=== PATIENT | male | born 1940 | race Caucasian/White ===

== ENCOUNTER 2016-11-24 13:00 | Outpatient (RCR) | payer MEDICARE ==
--- NOTE | 2016-11-04 12:40 | PT/OT/ST INITIAL EVALUATION ---
Department of Health and Human Services Form Approved [place] [employer] OMB No. [id number] PLAN OF CARE/ASSESSMENT FOR OUTPATIENT REHABILITATION (Complete for Initial Claims Only) 1. PATIENT'S NAME Cooper Gonzalez 2. ACC # [id number] 3. NAAIS 4. PROVIDER NO. [id number] 5. TYPE: PT 6. PRIOR HOSPITALIZATION NA 7. PRIMARY DX Low back pain and right hip pain. 8. SECONDARY DX NA 9. ONSET DATE 2 years ago 10. REFERRAL DATE 10/27/2016 11. SOC. DATE 11/01/2016 12. TIME OF EVAL 14:12 to 15:08 12. REFERRING PHYSICIAN MARIA C Herrera with Dr. Cortes Gtz 13. CHARGES/UNITS Evaluation 96353 1 unit of therapeutic exercise, 67961 1 unit of manual therapy, 40517 14. G CODES NA 15. PRIOR LEVEL OF FUNCTION; PERTINENT HISTORY (Prior therapy results, reason for referral.) S: Prior to therapy the patient consented to today's evaluation and treatment. The patient is a 76-year-old male referred by Kirsten Rodriguez for Dr. Sachin Gtz to address a 2-year history of low back pain and right hip pain. Primary Complaint: The patient's primary complaint is difficulty standing up straight, especially after he has been sitting for longer periods of time. He does feel his posture has continued to progress into a more forward flexed positioning over the last 2 years. The pain is minimal to moderate and is aggravated by standing or lifting, with standing time to approximately 10 minutes. The pain is relieved by sitting, walking or wearing a back brace. He does report achiness in the right hip in addition to the low back stiffness and lack of mobility. 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 The patient had no limitations with this and continues to do this on a daily basis. Current level of function: As stated above, the patient's standing tolerance is limited to 10 minutes prior to him needing to take a rest break. Therapy History: The patient denies any therapy for this issue. Recently he has seen a chiropractor, but did not receive treatment, only evaluation. Per patient's report he was told that he would need a hip replacement from the chiropractor. 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 Past medical history: The patient broke his right lower extremity 30 to 40 years ago in which he shattered his tibia and fibula. He has been in remission of colon cancer for 5 years, history of hypertension and bilateral carpal tunnel syndrome. Current medications: The patient is on Lisinopril and atorvastatin. The patient does take aspirin as needed. Patient's Goal: The patient's goal for physical therapy is to be able to walk and stand up straight. 16. INITIAL ASSESSMENT/SAFETY PRECAUTIONS/MEDICAL COMPLICATIONS (Level of function at start of care. Be specific, use objective measures, list problems.) O: APPEARANCE, OBSERVATION AND GAIT: Observation of the patient's posture revealed increased time needed to assume full upright standing from a sitting position. He demonstrates increased hip and pelvic movement versus lumbar spine movement with lumbar flexion. He is able to complete extension, but is limited by 90% in the lumbar spine. He is unable to perform straight lateral side bending in the low back, but does demonstrate rotation movements with this range of motion. Further assessment reveals decreased lumbar lordosis and thoracic kyphosis. PALPATION: Tenderness to palpation and tightness around the bilateral SI joints and lumbar paraspinals. MOBILITY: The patient has hypomobility throughout L4 into the sacrum, as well as mid thoracic spine hypomobility. SPECIAL TESTS: Negative VICKY, FADER, and hip scour test bilaterally for increased pain. Assessment of patient's pelvic rotation reveals right lower extremity moving from short to long with the long sitting test. The patient has negative lumbar shearing test for any instability. RANGE OF MOTION/FLEXIBILITY: The patient has right hip flexion to 108 degrees, left 114 degrees. Right hamstring length tested in the 90/90 position on the right 138 degrees, left 146 degrees. STRENGTH: Bilateral hip flexion and knee extension strength 5/5, knee flexion strength 4/5 bilaterally. Left hip abduction 3+/5, right 4/5. Hip extension on the left 3-/5, right 2-/5. TODAY'S TREATMENT: Today's treatment consisted of educating the patient on the findings of the evaluation and recommended treatment plan. The physical therapist initiated lower extremity stretching including single knee to chest, hamstring stretching and lower trunk rotation to improve mobility. The patient was provided a copy of these exercises to be completed at home. The physical therapist also initiated joint mobilization to the lumbar spine to improve mobility and decrease pain. 17. INITIAL POC: (Specify procedures, modalities, short and termite inspector goals) A: The patient presents to physical therapy with an approximate 2-year history of progressively flexed posture in the low back and pain associated with this at times. The patient has significant hypomobility in the lowest levels of the lumbar spine, as well as significant hip weakness and hamstring tightness. PROGNOSIS: The patient does have a good outcome with regular therapy attendance and compliance with his home exercise program. OUTCOME ASSESSMENT: The patient scores a 7/50 on the modified Oswestry. INFORMED CONSENT: The diagnosis, prognosis, treatment plan, risks and expected outcomes were discussed with this patient and he is agreeable to today's established plan of care. JUSTIFICATION FOR LOW COMPLEXITY EVALUATION CODE: The patient's posture is progressive; however, minimal other comorbidities will affect the patient's progress. SHORT TERM GOALS X3 WEEKS: 1. The patient will be able to complete 5 [id number] transfers without the assistance of the upper extremities without limitations to demonstrate improved strength and muscle firing patterns. 2. The patient will improve bilateral hip extension strength to a minimum of 3/5 to improve hip stability. 3. The patient will improve bilateral hamstring length by a minimum of 10 degrees to decrease strain on the low back and pelvis. INTERMEDIATE GOALS X4 WEEKS: 1. The patient will report pain no greater than 2/10 with all functional activities. 2. The patient will have bilateral hip extension strength to 4/5, hip flexion and hip abduction strength to be 4+/5 to demonstrate improved overall strength to provide further support for the right hip and low back. 3. The patient will improve standing tolerance to be a minimum of 20 minutes to improve his ability to complete functional tasks including carrying sacks of feed and baling hay. 4. The patient will demonstrate proper body mechanics lifting up to 30 pounds in order to prevent further deterioration of the low back and right hip. P: Plan to treat this patient 2 times a week for 4 weeks in order to address impaired lumbar spine and lower extremity mobility and flexibility, as well as proximal hip weakness. Therapeutic interventions will include modalities as needed to improve muscle tightness and pain in the low back; however, caution should be used with modalities secondary to the presence of the patient's cancer history. Manual therapy techniques will be utilized to improve muscle mobility and lumbar spine and will include joint mobilizations, myofascial release, soft tissue and deep tissue mobilization. Therapeutic exercise will emphasize on regaining normalized lumbar spine, range of motion with progressive trunk stabilization and hip strengthening exercises. Functional training will be provided as well as neuromuscular reeducation to improve muscle firing patterns and body mechanics to prevent further injury. The patient was provided a home exercise program and this will be progressed as needed. Thank you for the referral of this patient. 18. FREQUENCY 2 times per week 19. DURATION 4 weeks 20. FUNCTIONAL LEVEL (End of claim period) 21. PHYSICIAN SIGNATURE ? ON FILE OR ENTER HERE: 22. DATE: I certify the need for these services furnished under this plan of care and if for partial hospitalization. 23. CERTIFICATION FROM THROUGH [facility]700
[~2016-11-24 13:00] MED LIST: ASPI-586 PO; ATOR40TA2 PO; CHOL200018 PO; CYAN1TAB26 PO; EZET10TA5 PO; LSNP10T PO; LSNP20T PO; MULT-35 PO; MULT1TAB69 PO; OMG1KC PO; ROSU40TA PO; TADA5TAB2 PO; WRF3T PO
== END 2016-11-29 13:08 | disposition home or self-care (01) ==
LOC: PT 13:00
PROVIDERS: ATTEND Family Medicine
DX: M54.5 Low back pain (principal); M25.551 Pain in right hip